=== PATIENT | female | born 1990 | race Caucasian/White ===

== ENCOUNTER → 2019-03-09 | Emergency (ER) | payer OTHER ==
[~2019-03-09] VITALS: Ht 157.5 cm; Wt 63.6 kg
[~2019-03-09] MED LIST: ACET325T33 PO; CEPH-443 PO; CIPR500T4 PO; CYCL10TA7 PO; FERR27TA PO; HYDR-3498 PO; IBUP-1542 PO; IBUP-1561 PO; NEOM1PAC TP; NITR-58 PO; ONDA4TAB14 PO; PREN1TAB49 PO
[2019-03-09 00:41] VITALS: Ht 157.5 cm; Wt 63.6 kg
--- NOTE | 2019-03-09 02:46 | ERD ---
ER Documentation Chief Complaint Chief Complaint BIB [facility],for med clearance,c/o Rt side pelvic pain,LMP 12/24/2018, HPI 28-year-old female brought in by [employer] for medical clearance. Patient is and says she has right-sided pelvic pain. Denies fevers chills nausea vomiting vaginal bleeding. Denies any other current issues. ROS All systems reviewed and are negative except as per history of present illness. Medications Home Meds Active Scripts Cephalexin* (Keflex*) 500 Mg Capsule, 500 MG PO QID for 7 Days, CAP Prov:MARLEN FIGUEROA 03/09/19 Neomycin Choi/Bacitrac Zn/Poly (Triple Antibiotic Ointment) 1 Each Oint.pack, 1 EACH TP BID for 10 Days Prov:HENRIQUE FLOWERS PA-C 08/22/16 Nitrofurantoin Monohyd Macrocr* (Macrobid*) 100 Mg Capsr, 100 MG PO BID for 5 Days, CAP Prov:YI VEGAS PA-C 08/09/16 Ondansetron (Ondansetron Odt) 4 Mg Tab.rapdis, 4 MG PO Q6H PRN for NAUSEA AND/OR VOMITING, #10 TAB Prov:YI VEGAS PA-C 08/09/16 Ibuprofen* (Motrin*) 400 Mg Tab, 400 MG PO Q6H PRN for PAIN AND OR ELEVATED TEMP, #30 TAB Prov:YI VEGAS PA-C 08/09/16 Hydrocodone Bit-Acetaminophen* ([place]*) 5-325 Mg Tab, 1 TAB PO Q6 PRN for PAIN, #7 TAB Prov:COLLENE NEFF I. ORTHOTICS PROSTHETICS ASSISTANT 02/05/16 Ibuprofen* (Motrin*) 600 Mg Tab, 600 MG PO Q6, #20 TAB Prov:COLLEEN NEFF I. ORTHOTICS PROSTHETICS ASSISTANT 02/05/16 Cyclobenzaprine Hcl* (Cyclobenzaprine Hcl*) 10 Mg Tablet, 10 MG PO TID, #15 TAB Prov:COLLEEN NEFF I. ORTHOTICS PROSTHETICS ASSISTANT 02/05/16 Hydrocodone Bit-Acetaminophen* ([place]*) 5-325 Mg Tab, 1 TAB PO Q6 PRN for PAIN, #7 TAB Prov:OSIRIS DELA CRUZ PA-C 12/06/15 Ciprofloxacin Hcl* (Ciprofloxacin Hcl*) 500 Mg Tablet, 500 MG PO BID for 3 Days, TAB Prov:OSIRIS DELA CRUZ PA-C 12/06/15 Acetaminophen* (Tylenol*) 325 Mg Tablet, 2 TAB PO Q8 PRN for PAIN AND OR ELEVATED TEMP, #20 TAB Prov:ANNIE ARZOLA PA-C 10/18/15 Nitrofurantoin Monohyd Macrocr* (Macrobid*) 100 Mg Capsr, 100 MG PO BID for 7 Days, CAP Prov:ANNIE ARZOLA PA-C 10/18/15 Reported Medications Ferrous Sulfate (Iron) 1 Tab Tablet, 1 TAB PO DAILY 06/12/12 Vits W-Ca,Fe,Fa(<1MG) () 1 Tab Tablet, 1 TAB PO DAILY 06/12/12 Allergies Allergies: Coded Allergies: No Known Drug Allergy (Verified Allergy, Unknown, 11/11/13) PMhx/Soc History of Surgery: Yes (cholecystectomy 08/10/16) Anesthesia Reaction: No Hx Neurological Disorder: No Hx Respiratory Disorders: No Hx Cardiac Disorders: No Hx Psychiatric Problems: No Hx Miscellaneous Medical Probl: Yes (GALLSTONES ) Hx Alcohol Use: No Hx Substance Use: Yes (METH , 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 Neck: Full range of motion. No meningismus. Resp: Clear to auscultation bilaterally Cardio: Regular rate and rhythm, no murmurs Abd: Soft, non tender, non distended. Normal bowel sounds Skin: No petechiae or rashes Back: No midline or flank tenderness Ext: No cyanosis, or edema Neur: Awake and alert Psych: Normal Mood and Affect Result Diagram: 03/09/19 0105 Results 24 hrs Laboratory Tests Test 03/09/19 00:57 03/09/19 01:05 Urine Color YELLOW Urine Clarity CLOUDY Urine pH 7.0 Urine Specific [place] 1.023 Urine Ketones NEGATIVE mg/dL Urine Nitrite NEGATIVE mg/dL Urine Bilirubin NEGATIVE mg/dL Urine Urobilinogen 1+ mg/dL Urine Leukocyte Esterase 2+ Kadi/ul Urine Microscopic RBC 4 /HPF Urine Microscopic WBC 64 /HPF Urine Squamous Epithelial Cells MANY /HPF Urine Bacteria MODERATE /HPF Urine Mucus FEW /HPF Urine Hemoglobin NEGATIVE mg/dL Urine Glucose NEGATIVE mg/dL Urine Total Protein NEGATIVE mg/dl White Blood Count 7.6 10^3/ul Red Blood Count 4.55 10^6/ul Hemoglobin 13.4 g/dl Hematocrit 39.4 % Mean Corpuscular Volume 86.6 fl Mean Corpuscular Hemoglobin 29.5 pg Mean Corpuscular Hemoglobin Concent 34.0 g/dl Red Cell Distribution Width 13.0 % Platelet Count 252 10^3/UL Mean Platelet Volume 9.9 fl Immature Granulocytes % 0.500 % Neutrophils % 59.9 % Lymphocytes % 33.3 % Monocytes % 5.7 % Eosinophils % 0.5 % Basophils % 0.1 % Nucleated Red Blood Cells % 0.0 /100WBC Immature Granulocytes # 0.040 10^3/ul Neutrophils # 4.5 10^3/ul Lymphocytes # 2.5 10^3/ul Monocytes # 0.4 10^3/ul Eosinophils # 0.0 10^3/ul Basophils # 0.0 10^3/ul Nucleated Red Blood Cells # 0.0 10^3/ul Beta HCG, Quantitative 10262.0 mIU/ml Procedures/MDM Medical decision m[age]-year-old female with a urinary tract infection. Normal IUP otherwise. Discharged in police custody in stable condition. Okay to book. Departure Diagnosis: Primary Impression: UTI (urinary tract infection) Urinary tract infection type: site unspecified Hematuria presence: without hematuria Qualified Codes: N39.0 - Urinary tract infection, site not specified Additional Impression: Medical clearance for incarceration Condition: Stable Patient Instructions: Urinary Tract Infections in Women, Senior Care Clearance MARLEN FIGUEROA Mar 09, 2019 02:46
[2019-03-09 02:47] VITALS: BP 118/74; PULSE 78; RESP 18
== END | disposition home or self-care (01) ==
LOC: E/R 00:28
DX: O26.892 Other specified pregnancy related conditions, second trimester (principal); O23.42 Unspecified infection of urinary tract in pregnancy, second trimester; R10.2 Pelvic and perineal pain; O99.332 Smoking (tobacco) complicating pregnancy, second trimester; F17.210 Nicotine dependence, cigarettes, uncomplicated; Z02.89 Encounter for other administrative examinations; Z3A.15 15 weeks gestation of pregnancy
CPT/HCPCS: 36415; 76801; 81001; 84702; 85025

== ENCOUNTER 2019-05-18 21:00 | Outpatient (CLI) | payer OTHER ==
[~2019-05-18] VITALS: Ht 157.5 cm; Wt 72.9 kg
[2019-05-18 21:17] VITALS: BP 123/69; PULSE 76; RESP 18
[2019-05-19 00:17] VITALS: Ht 157.5 cm; Wt 72.9 kg
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
== END 2019-05-19 00:50 | disposition home or self-care (01) ==
LOC: OBT 21:00 → L-D 21:01 → OBT 05-19 00:50
PROVIDERS: ATTEND Obstetrics & Gynecology Obstetrics
DX: O26.892 Other specified pregnancy related conditions, second trimester (principal); R10.9 Unspecified abdominal pain; Z3A.24 24 weeks gestation of pregnancy
CPT/HCPCS: 76815; 76817; 80307; 81001; 85025; 85384; G0463

== ENCOUNTER 2019-05-19 00:57 | Emergency (ER) | payer OTHER ==
[~2019-05-19] VITALS: Ht 157.5 cm; Wt 73.5 kg
[2019-05-19 01:14] VITALS: BP 120/71; PULSE 90; RESP 18; Ht 157.5 cm; Wt 73.5 kg
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
[2019-05-19] MEDS ORDERED: ACETAMINOPHEN 325 MG TAB ONE (01:29)
[2019-05-19] MEDS ORDERED: ACETAMINOPHEN 325 MG TAB PO ONE (01:30)
== END 2019-05-19 01:40 ==
LOC: E/R 00:57
DX: Z02.89 Encounter for other administrative examinations (principal); Z87.891 Personal history of nicotine dependence
CPT/HCPCS: 99282

== ENCOUNTER 2019-05-20 16:05 | Outpatient (CLI) | payer OTHER ==
[2019-05-20] MEDS ORDERED: LACTATED RINGER'S 1,000 ML IV SCH ×2 (17:30→19:30)
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
== END 2019-05-20 23:54 ==
LOC: OBT 16:05 → L-D 16:06 → OBT 23:54
PROVIDERS: ATTEND Obstetrics & Gynecology
DX: O9A.212 Injury, poisoning and certain other consequences of external causes complicating pregnancy, second trimester (principal); Z3A.24 24 weeks gestation of pregnancy; Z3A.27 27 weeks gestation of pregnancy
CPT/HCPCS: 36415; 76815; 76817; 80307; 81003; 84112; 86900; 86901; 87086; 96360; 96361; G0463; J7120

== ENCOUNTER 2019-08-13 01:55 | Inpatient (IN) | payer OTHER ==
[~2019-08-13] VITALS: Ht 157.5 cm; Wt 76.4 kg
[~2019-08-13 01:55] MED LIST changes: -ACET325T33 PO; -CEPH-443 PO; -CIPR500T4 PO; -CYCL10TA7 PO; +DOCU-144 PO; -FERR27TA PO; -HYDR-3498 PO; -IBUP-1561 PO; -NEOM1PAC TP; -NITR-58 PO; -ONDA4TAB14 PO; -PREN1TAB49 PO
[2019-08-13] MEDS ORDERED: OXYTOCIN 30 UNITS/LR 500 ML IV SCH ×4 (02:11→02:30)
[2019-08-13] MEDS ORDERED: LACTATED RINGER'S 1,000 ML IV* SCH ×2 (02:11→02:13)
[2019-08-13] MEDS ORDERED: LACTATED RINGER'S 1,000 ML IV SCH (02:15)
[2019-08-13] MEDS ORDERED: LIDOCAINE 1% (MPF) 30 ML INJ INJ PRN (02:30)
[2019-08-13] MEDS ORDERED: LANOLIN HPA 1 PKT TOP PRN ×2 (02:30)
[2019-08-13] MEDS ORDERED: OXYTOCIN 30 UNITS/LR 500 ML IV PRN ×2 (02:30)
[2019-08-13] MEDS ORDERED: DIBUCAINE 1% 30 GM OINT TOP PRN ×2 (02:30)
[2019-08-13] MEDS ORDERED: WITCH HAZEL/GLYCERIN PAD PR PRN ×2 (02:30)
[2019-08-13] MEDS ORDERED: BENZOCAINE 20% 56 ML SPRAY TOP PRN ×2 (02:30)
[2019-08-13] MEDS ORDERED: CARBOPROST 250 MCG INJ IM PRN ×2 (02:30)
[2019-08-13] MEDS ORDERED: HYDROCODONE/APAP (5/325) TAB PO PRN ×4 (02:30)
[2019-08-13] MEDS ORDERED: METHYLERGONOVINE 0.2 MG INJ IM PRN ×2 (02:30)
[2019-08-13] MEDS ORDERED: MISOPROSTOL 200 MCG TAB PR PRN ×2 (02:30)
[2019-08-13] MEDS ORDERED: OXYTOCIN 10 UNIT INJ IM ONE (03:00)
[2019-08-13 03:55] VITALS: BP 130/75; PULSE 71; RESP 19
[2019-08-13 04:55] VITALS: BP 129/72; PULSE 66; RESP 19
[2019-08-13] MEDS: IBUPROFEN 600 MG TAB PO SCH ×4 (05:44→23:32)
[2019-08-13] MEDS ORDERED: IBUPROFEN 600 MG TAB PO SCH (06:00)
[2019-08-13 08:15] VITALS: BP 122/74; PULSE 69; RESP 18
[2019-08-13 16:01] VITALS: BP 118/56; PULSE 91; RESP 16
[2019-08-13 20:00] VITALS: BP 116/74; PULSE 78; RESP 18
[2019-08-14 00:45] VITALS: BP 126/82; PULSE 90; RESP 17
[2019-08-14 04:14] VITALS: BP 112/63; PULSE 80; RESP 16
[2019-08-14] MEDS: IBUPROFEN 600 MG TAB PO SCH ×4 (05:55→23:39)
[2019-08-14 08:25] VITALS: BP 122/66; PULSE 96; RESP 18
[2019-08-14 15:21] VITALS: BP 130/74; PULSE 94; RESP 18
[2019-08-14 20:10] VITALS: BP 119/56; PULSE 94; RESP 18
[2019-08-15 04:49] VITALS: BP 117/60; PULSE 86; RESP 18
[2019-08-15] MEDS: IBUPROFEN 600 MG TAB PO SCH ×3 (06:27→17:53)
[2019-08-15 07:43] VITALS: BP 105/56; PULSE 83; RESP 18
[2019-08-15] MEDS ORDERED: VARICELLA VACCINE LIVE/PF 1,350 UNIT/0.5 ML ML SC* ONE (09:00)
[2019-08-15] MEDS ORDERED: DIPHTH/TET/ACEL PERTUSS (ADULT) 0.5 ML VIAL IM* ONE (09:00)
[2019-08-15] MEDS ORDERED: MEASLES,MUMPS,RUBELLA VACCINE INJ SC* ONE (09:00)
[2019-08-15 16:30] VITALS: BP 124/74; PULSE 85; RESP 18
== END 2019-08-15 21:25 | disposition home or self-care (01) | DRG 776 ==
LOC: OBT 01:55 → L-D 01:57 → PP1 03:58
PROVIDERS: ADMIT Obstetrics & Gynecology; ATTEND Obstetrics & Gynecology
DX: O90.81 Anemia of the puerperium (principal); D62 Acute posthemorrhagic anemia
CPT/HCPCS: 59414; 80307; 85025; 85610; 85730; 86592; 86703; 86762; 86803; 86850; 86900; 86901; 87340; 90715; 90716; J2590; J7120